=== PATIENT | male | born 1935 | race Hispanic/Latino ===

== ENCOUNTER 2017-02-17 17:04 | Outpatient (CLI) | payer MEDICARE, OTHER ==
--- NOTE | 2017-02-18 11:47 | Magnetic Resonance Report ---
MRI LUMBAR SPINE WITHOUT CONTRAST HISTORY: Low back pain. TECHNIQUE: axial T1, T2. sagittal T1,T2, STIR. COMPARISON: None. FINDINGS: The conus terminates at L1. No signal abnormality or mass. The cauda equina is within normal limits. Normal height and alignment of the lumbar vertebra. The facet joints are in appropriate relationship. Normal bone marrow signal. No acute fracture or suspicious bone lesion. There is diffuse disc desiccation and narrowing. There is moderate hypertrophic facet arthropathy throughout the lumbar region as well. L1-2: No significant bulging disc. There is mild facet arthropathy and mild hypertrophy of the ligamentum flavum. No central canal narrowing or neuroforaminal narrowing. L2-3: A mild posterior bulging disc is identified. Mild facet arthropathy and hypertrophy of the ligamentum flavum. There is borderline to mild central canal narrowing measuring 9 mm in AP dimension. Bilateral neural foraminal narrowing is estimated at 25-50%. L3-4: A mild posterior bulging disc is identified. Severe facet hypertrophy and hypertrophy of the ligamentum flavum is evident. Severe central canal narrowing measures 6 mm in AP dimension. Bilateral neural foraminal narrowing is estimated 50-75%.. L4-5: No significant abnormality with the disc. Moderate to severe facet hypertrophy and moderate hypertrophy of the ligamentum flavum. No central canal narrowing. There is mild bilateral neural foraminal narrowing estimated 25-50%. L5-S1: No significant abnormality. IMPRESSION: Moderate to severe lumbar spondylosis as outlined above. L3-4 appears to be the most affected level.
== END 2017-02-17 17:05 | disposition home or self-care (01) ==
LOC: MRI 17:04
PROVIDERS: ATTEND Pain Medicine Interventional Pain Medicine
DX: M47.896 Other spondylosis, lumbar region (principal); M12.88 Other specific arthropathies, not elsewhere classified, other specified site; M24.28 Disorder of ligament, vertebrae; Z87.891 Personal history of nicotine dependence
CPT/HCPCS: 72148